=== PATIENT | male | born 1960 | race Caucasian/White ===

== ENCOUNTER 2021-12-23 03:08 | Emergency (ER) | payer BC ==
--- OUTSIDE RECORDS SUMMARY | 2021-12-23 03:10 | XMS REPORT | Continuity of Care Document ---
:1960 Author Organization [facility] t Address [address] [place] [address] [place] [id number] Care Team Providers Name Role Phone Ania Eid MD Primary Care Physician ANIA EID Attending Clinician Unavailable Prezas DO Attending Clinician LAB90 Attending Clinician Unavailable Ania Eid MD Attending Clinician MYGOGOONANGELIC Attending Clinician Unavailable Payers Payer Name Policy Type Policy Number Effective Date Expiration Date Vinicius palafox [facility] 2 [id number] 2020 00:00:00 Problems Condition Condition Condition Status Onset Resolution Last Treating Co mments Source Name Details Category Date Date Treatment Clinician Date Cellulitis Cellulitis Disease Active Samy santamariay of right of right 12-22 Seybol d lower lower 00:00: extremity extremity 00 Prediabete Prediabete Disease Active Samy fang s s 11-30 Seybold 00:00: 00 Hypertensi Hypertensi Disease Active Samy fang on on 11-17 Seybold 00:00: 00 IFG IFG Disease Active Gogo (impaired (impaired 11-17 Seyb old fasting fasting 00:00: glucose) glucose) 00 Hyperlipid Hyperlipid Disease Active Samy fang emia LDL emia LDL 11-17 Seybol d goal <160 goal <160 00:00: 00 Allergies, Adverse Reactions, Alerts This patient has no known allergies or adverse reactions. Social History Social Habit Start Date Stop Date Quantity Comments Source Exposure to Not sure Gogo brewer SARS-CoV-2 (event) History of Cigarette Smoker Gogo hardin tobacco use Alcohol intake 2021-12-22 2021-12-22 Ex-drinker Gogo Ashton bold 00:00:00 00:00:00 (finding) Sex [birth year] At [birth year] Gogo stoddard 00:00:00 00:00:00 Smoking Status Start Date Stop Date Source Occasional tobacco smoker 2020-11-17 00:00:00 Arthur Juan Medications Ordered Filled Start Stop Current Ordering Indication Dosage Frequency Signature Comments Components Source Medication Medication Date Date Medication? Clinician (SIG) Name Name Amoxicillin Yes [id number] 1{tbl} Take 1 Gogo -Pot 12-22 [id number] tablet by Seybold Clavulanate 00:00: mouth in 875-125 MG 00 the oral Tablet morning and 1 tablet in the evening. Doxycycline 2021- Yes [id number] 100mg Take 1 Gogo Hyclate 100 12-22 [id number] capsule Se ybold MG oral 00:00: 04:59 (100 mg Capsule 00 :00 total) by mouth in the morning and 1 capsule (100 mg total) in the evening. Do all this for 7 days. Lisinopril Yes [id number] 20mg Take 1 K elsey 20 MG oral 5-09 tablet (20 Sey bold Tablet 00:00: mg total) 00 by mouth daily Lisinopril Yes [id number] 20mg Take 1 K elsey 20 MG oral 5-09 tablet (20 Sey bold Tablet 00:00: mg total) 00 by mouth daily Rosuvastati 2020-07 Yes [id number] 10mg Take 1 Gogo n Calcium 0-25 tablet (10 Seyb old 10 MG oral 00:00: mg total) Tablet 00 by mouth daily Rosuvastati 2020-07 Yes [id number] 10mg Take 1 Gogo n Calcium 0-25 tablet (10 Seyb old 10 MG oral 00:00: mg total) Tablet 00 by mouth daily Lisinopril 2020-07 Yes [id number] 20mg Take 1 K elsey 20 MG oral 0-18 tablet (20 Sey bold Tablet 00:00: mg total) 00 by mouth daily Lisinopril 2020-07- No [id number] 20mg Take 1 Gogo 20 MG oral 0-18 05-09 tablet (20 Se ybold Tablet 00:00: 00:00 mg total) 00 :00 by mouth daily Lisinopril 2020- No [id number] 20mg Take 1 Gogo 20 MG oral 4-26 10-18 tablet (20 Se ybold Tablet 00:00: 00:00 mg total) 00 :00 by mouth daily Immunizations Ordered Immunization Filled Immunization Date Status Commen ts Source Name Name Covid-19 Vaccine 2021-09-05 Completed Gogo hardin ([employer]), Mrna-lnp, 00:00:00 Sahun Protein, Pf, 30mcg/0.3ml,IM Covid-19 Vaccine 2021-09-05 Completed Gogo hardin ([employer]), Mrna-lnp, 00:00:00 Shaun Protein, Pf, 30mcg/0.3ml,IM Influenza, 2021-06-06 Completed Gogo Juan Injectable, Mdck, 00:00:00 Preservative Free, Quadrivalt Influenza, 2021-06-06 Completed Gogo Juan Injectable, Mdck, 00:00:00 Preservative Free, Quadrivalt Vital Signs Vital Name Observation Time Observation Value Comments Source Systolic blood pressure 2021-12-22 21:32:00 156 mm[Hg] Gogo Juan Diastolic blood 2021-12-22 21:32:00 78 mm[Hg] Dave Juan pressure Heart rate 2021-12-22 21:32:00 93 /min Gogo hardin Body temperature 2021-12-22 21:32:00 36.94 Denise Jessica Juan Respiratory rate 2021-12-22 21:32:00 14 /min Jessica Juan Body height 2021-12-22 21:32:00 162.6 cm Gogo hardin Body weight 2021-12-22 21:32:00 95.709 kg Gogo hardin BMI 2021-12-22 21:32:00 36.22 kg/m2 Gogo S eybold Oxygen saturation in 2021-12-22 21:32:00 98 /min Gogo Juan Arterial blood by Pulse oximetry Systolic blood pressure 2021-11-30 13:20:00 120 mm[Hg] Gogo Seybold Diastolic blood 2021-11-30 13:20:00 78 mm[Hg] Kelse y Seybold pressure Heart rate 2021-11-30 13:20:00 96 /min Gogo Colvin eybold Body temperature 2021-11-30 13:20:00 36.67 Denise Jessica ey Seybold Respiratory rate 2021-11-30 13:20:00 14 /min Jessica ey Seybold Body height 2021-11-30 13:20:00 162.6 cm Gogo Colvin eybold Body weight 2021-11-30 13:20:00 95.709 kg Gogo Colvin eybold BMI 2021-11-30 13:20:00 36.22 kg/m2 Gogo campuzanobold Oxygen saturation in 2021-11-30 13:20:00 99 /min Gogo Juan Arterial blood by Pulse oximetry Systolic blood pressure 2021-05-11 14:08:00 127 mm[Hg] Gogo Seybold Diastolic blood 2021-05-11 14:08:00 74 mm[Hg] Kelse y Seybold pressure Heart rate 2021-05-11 14:08:00 86 /min Gogo Colvin eybold Body temperature 2021-05-11 14:08:00 36.44 Denise Jessica ey Seybold Respiratory rate 2021-05-11 14:08:00 14 /min Jessica campuzano Seybold Body height 2021-05-11 14:08:00 162.6 cm Gogo campuzanobold Body weight 2021-05-11 14:08:00 92.352 kg Gogo Colvin eybold BMI 2021-05-11 14:08:00 34.95 kg/m2 Gogo campuzanobold Procedures This patient has no known procedures. Encounters Start End Encounter Admission Attending Care Care Encounter Source Date/Time Date/Time Type Type Clinicians Facility Department ID 2022-06-14 2022-06-14 Outpatient GOGO EID [id number] Gogo 08:00:00 08:00:00 ASHLEY brewer 2021-12-22 2021-12-22 Office Madhu Rob [id number] Gogo 16:30:00 16:45:00 Visit Elton López [id number] Se ybold [id number] 2021-11-30 2021-11-30 Outpatient LAB90 GOGO FIGUEREDO [id number] Gogo 08:45:00 08:45:00 Seybol d 2021-11-30 2021-11-30 Office Madhu Eid [id number] Gogo 08:00:00 08:15:00 Visit Ashley López [id number] Se ybradha Somogyi [id number] 2021-11-09 2021-11-09 Outpatient GOGO EID [id number] Gogo 08:00:00 08:00:00 ASHLEY Seybol d 2021-08-13 2021-08-13 Outpatient ISAMAR FIGUEREDO [id number] Gogo 00:00:00 00:00:00 MD HÉCTOR Seybol d 2021-05-13 2021-05-13 Outpatient GOGO EID [id number] Gogo 00:00:00 00:00:00 ASHLEY Seybol d 2021-05-11 2021-05-11 Outpatient LAB90 GOGO FIGUEREDO [id number] Gogo 09:50:00 09:50:00 Seybol d 2021-05-11 2021-05-11 Office [place], Madhu [id number] Gogo 08:56:21 09:26:21 Visit Ashley López [id number] Se ybradha Somogyi [id number] Results This patient has no known results.
[2021-12-23] MEDS ORDERED: HYDROCODONE/APAP 5/325 MG TAB ONE (06:49)
--- NOTE | 2021-12-23 08:09 | RAD REPORT ---
EXAM DESCRIPTION: RAD - Foot Right 3 View - 12/23/2021 7:42 am CLINICAL HISTORY: Pain COMPARISON: FOOT W OBLIQUES dated 01/27/2009 FINDINGS: Small plantar calcaneal spur. Soft tissue swelling is seen along the dorsum of the forefoo t. No acute fracture, dislocation or aggressive marrow lesion.
--- NOTE | 2021-12-23 09:23 | EDPHYS ---
Physician Documentation [facility] Name: Rocael Mullins Age: 61 yrs Sex: Male : 1960 Arrival Date: 12/23/2021 Time: 03:14 Bed 15 Private MD: ED Physician Marc Deshpande HPI: 12/23 06:15 This 61 yrs old Male presents to ER via Wheelchair with complaints of Foot Pain, Foot mh7 Injury, Wound Infection. 06:15 The patient presents with pain, that is acute, swelling. The complaints affect the mh7 right foot. Context: The problem was sustained at an unknown location, resulted from an unknown cause, Mechanism of Injury: Unknown the patient can fully bear weight, the patient is able to ambulate, with mild difficulty. Onset: The symptoms/episode began/occurred 2 day(s) ago. Modifying factors: The symptoms are alleviated by nothing, the symptoms are aggravated by weight bearing. Associated signs and symptoms: Pertinent negatives: calf tenderness, fever, nausea, numbness, rash, tingling, vomiting, warmth, weakness. Severity of symptoms: At their worst the symptoms were moderate, 1 day(s) ago, in the emergency department the symptoms are unchanged. Historical: - Allergies: 03:58 No Known Allergies; vc1 - Home Meds: 03:58 lisinopril 10 mg Oral tab 1 tab once daily [Active]; vc1 - PMHx: 03:58 Hypertensive disorder; vc1 - PSHx: 03:58 Hernia repair; vc1 - Immunization history:: Adult Immunizations up to date. - Social history:: Smoking status: Patient reports the use of cigarette tobacco products, 1 pack per week. ROS: 06:15 Constitutional: Negative for fever, chills, and weight loss, Eyes: Negative for injury, mh7 pain, redness, and discharge, ENT: Negative for injury, pain, and discharge, Neck: Negative for injury, pain, and swelling, Cardiovascular: Negative for chest pain, palpitations, and edema, Respiratory: Negative for shortness of breath, cough, wheezing, and pleuritic chest pain, Abdomen/GI: Negative for abdominal pain, nausea, vomiting, diarrhea, and constipation, Back: Negative for injury and pain, : Negative for injury, bleeding, discharge, and swelling, Neuro: Negative for headache, weakness, numbness, tingling, and seizure, Psych: Negative for depression, anxiety, suicide ideation, homicidal ideation, and hallucinations, Allergy/Immunology: Negative for hives, rash, and allergies, Endocrine: Negative for neck swelling, polydipsia, polyuria, polyphagia, and marked weight changes. Exam: 06:15 Head/Face: Normocephalic, atraumatic. Eyes: Pupils equal round and reactive to light, mh7 extra-ocular motions intact. Lids and lashes normal. Conjunctiva and sclera are non-icteric and not injected. Cornea within normal limits. Periorbital areas with no swelling, redness, or edema. Neck: Trachea midline, no thyromegaly or masses palpated, and no cervical lymphadenopathy. Supple, full range of motion without nuchal rigidity, or vertebral point tenderness. No Meningismus. Chest/axilla: Normal chest wall appearance and motion. Nontender with no deformity. No lesions are appreciated. Cardiovascular: Regular rate and rhythm with a normal S1 and S2. No gallops, murmurs, or rubs. Normal PMI, no JVD. No pulse deficits. Respiratory: Lungs have equal breath sounds bilaterally, clear to auscultation and percussion. No rales, rhonchi or wheezes noted. No increased work of breathing, no retractions or nasal flaring. Abdomen/GI: Soft, non-tender, with normal bowel sounds. No distension or tympany. No guarding or rebound. No evidence of tenderness throughout. Back: No spinal tenderness. No costovertebral tenderness. Full range of motion. 06:15 Constitutional: The patient appears in no acute distress, alert, awake, uncomfortable. 06:15 Musculoskeletal/extremity: Extremities: noted in the right foot: erythema, tenderness, ROM: intact in all extremities, Circulation is intact in all extremities. Sensation intact. Compartment Syndrome exam of affected extremity: is normal. no numbness, no tingling, no sensation deficit, no palor, no weak pulses, Joints: All joints appear normal with full range of motion. Weight bearing: able to fully bear weight, Tendon exam: specific tendon testing normal through active and passive range of motion Calves: are non-tender, have equal circumference. 06:15 Skin: cellulitis, that is mild, on the right foot. Vital Signs: 03:50 BP 144 / 85; Pulse 81; Resp 16; Temp 98.8; Pulse Ox 98% ; Weight 88.45 kg; Height 5 ft. vc1 9 in. (175.26 cm); Pain 9/10; 05:36 BP 141 / 89; Pulse 75; Resp 16; Temp 98.8; Pulse Ox 99% on R/A; Pain 7/10; willa 09:19 BP 134 / 79; Pulse 66; Resp 14 S; Pulse Ox 95% on R/A; jg9 03:50 Body Mass Index 28.80 (88.45 kg, 175.26 cm) vc1 MDM: 09:22 Patient medically screened. kdr 10:40 Data reviewed: vital signs, nurses notes, lab test result(s), radiologic studies. kdr Counseling: I had a detailed discussion with the patient and/or guardian regarding: the historical points, exam findings, and any diagnostic results supporting the discharge/admit diagnosis, lab results, the need for outpatient follow up. 12/23 06:47 Order name: Foot Right 3 View XRAY; Complete Time: 08:54 mh7 12/23 09:18 Order name: Crutches; Complete Time: 09:26 kdr Administered Medications: 06:48 Drug: HYDROcodone-acetaminophen 5 mg-325 mg 1 tabs Route: PO; willa 07:45 Follow up: Response: No adverse reaction; Pain is decreased; RASS: Alert and Calm (0) jg9 Disposition Summary: 12/23/21 09:22 Discharge Ordered Location: Home kdr Problem: new kdr Symptoms: are unchanged kdr Condition: Stable kdr Diagnosis - Cellulitis of right lower limb - foot - 1st TCP kdr Followup: kdr - With: Private Physician - When: 2 - 3 days - Reason: If symptoms return, Further diagnostic work-up, Recheck today's complaints, Continuance of care, Re-evaluation by your physician Discharge Instructions: - Discharge Summary Sheet kdr - Cellulitis, Adult, Gxof-rh-Jagu kdr Forms: - Medication Reconciliation Form kdr - Thank You Letter kdr - Antibiotic Education kdr - Prescription Opioid Use kdr - Work release form jg9 Prescriptions: - Tylenol-Codeine #3 300 mg-30 mg Oral - take 1 tablet by ORAL route every 4-6 hours As needed Try to use only at kdr bedtime or at night; 12 tablet; Refills: 0, Product Selection Permitted Signatures: Dispatcher [employer] Marc Altamirano MD MD kdr Richi Mohr MD MD mh7 Bekah Navas RN RN willa Wendy Alcazar RN RN vc1 Tri Huber RN jg9
--- NOTE | 2021-12-23 09:23 | ER ---
Nurse's Notes [facility] Name: Rocael Mullins Age: 61 yrs Sex: Male : 1960 Arrival Date: 12/23/2021 Time: 03:14 Bed 15 Private MD: Diagnosis: Cellulitis of right lower limb-foot - 1st TCP Presentation: 12/23 03:50 Chief complaint: Patient states: "I went to urgent care yesterday because my foot was vc1 swollen. They said I have an infection, sent me home with antibiotics and told me to prop it up. The pain is too bad I was just tossing and turning and can't handle it.". Coronavirus screen: Vaccine status: Patient reports receiving the 2nd dose of the covid vaccine. [employer] At this time, the client does not indicate any symptoms associated with coronavirus-19. Ebola Screen: No symptoms or risks identified at this time. Initial Sepsis Screen: Does the patient meet any 2 criteria? No. Patient's initial sepsis screen is negative. Does the patient have a suspected source of infection? No. Patient's initial sepsis screen is negative. Risk Assessment: Do you want to hurt yourself or someone else? Patient reports no desire to harm self or others. Onset of symptoms is unknown. 03:50 Method Of Arrival: Wheelchair vc1 03:50 Acuity: MILI 3 vc1 Triage Assessment: 05:37 General: Appears in no apparent distress. uncomfortable, Behavior is calm, cooperative. willa Pain: Complains of pain in right foot Quality of pain is described as throbbing. 05:38 Injury Description: unknown. willa 05:38 Musculoskeletal: Swelling present in right foot. willa Historical: - Allergies: 03:58 No Known Allergies; vc1 - Home Meds: 03:58 lisinopril 10 mg Oral tab 1 tab once daily [Active]; vc1 - PMHx: 03:58 Hypertensive disorder; vc1 - PSHx: 03:58 Hernia repair; vc1 - Immunization history:: Adult Immunizations up to date. - Social history:: Smoking status: Patient reports the use of cigarette tobacco products, 1 pack per week. Screenin:37 Abuse screen: Denies threats or abuse. Denies injuries from another. Nutritional willa screening: No deficits noted. Tuberculosis screening: No symptoms or risk factors identified. Fall Risk None identified. Assessment: 05:33 Reassessment: No changes from previously documented assessment. The pt was brought to willa room #15 via w/c. His right foot is red and swollen. He reports having walked, barefoot, [place] the beach on [place] and by Tuesday, his foot was "throbbing". There is no lesion, lac, or otherwise, that is visible. The pt is pleasant and cooperative. 06:34 Reassessment: The pt ambulated to the restroom, with a hobbled gait. He remains willa pleasant, but uncomfortable. 06:40 Reassessment: The pt was seen at [facility] yesterday. willa Vital Signs: 03:50 BP 144 / 85; Pulse 81; Resp 16; Temp 98.8; Pulse Ox 98% ; Weight 88.45 kg; Height 5 ft. vc1 9 in. (175.26 cm); Pain 9/10; 05:36 BP 141 / 89; Pulse 75; Resp 16; Temp 98.8; Pulse Ox 99% on R/A; Pain 7/10; willa 09:19 BP 134 / 79; Pulse 66; Resp 14 S; Pulse Ox 95% on R/A; jg9 03:50 Body Mass Index 28.80 (88.45 kg, 175.26 cm) vc1 ED Course: 03:14 Patient arrived in ED. bp1 03:58 Triage completed. vc1 03:59 Arm band placed on right wrist. vc1 05:33 Bekah Navas, RN is Primary Nurse. willa 05:37 No provider procedures requiring assistance completed. willa 05:39 Bed in low position. Call light in reach. Lights dimmed. Warm blanket given. willa 06:10 Richi Mohr MD is Attending Physician. mh7 07:44 Foot Right 3 View XRAY In Process Unspecified. EDMS 07:44 Attending Physician role handed off by Richi Mohr MD kdr 07:44 Marc Deshpande MD is Attending Physician. kdr 09:40 Patient did not have IV access during this emergency room visit. jg9 Administered Medications: 06:48 Drug: HYDROcodone-acetaminophen 5 mg-325 mg 1 tabs Route: PO; willa 07:45 Follow up: Response: No adverse reaction; Pain is decreased; RASS: Alert and Calm (0) jg9 Medication: 09:27 VIS not applicable for this client. jg9 Outcome: 05:38 Condition: stable willa 09:22 Discharge ordered by . kdr 09:40 Discharged to home ambulatory, with crutches. jg9 09:40 Discharge instructions given to patient, Instructed on discharge instructions, follow up and referral plans. Demonstrated understanding of instructions, follow-up care, Prescriptions given X 1. 09:41 Patient left the ED. jg9 Signatures: Dispatcher [employer] EDMS Marc Deshpande MD MD kdr Paniauga, Brittany bp1 Holmes, Maurice, MD MD mh7 Tri Huber RN RN jg9 Bekah Navas RN RN bo Calcote, Vanessa RN RN vc1
[2021-12-23 09:45] VITALS: TEMP 98.8
[2021-12-23 09:49] VITALS: BP 134/79; O2SAT 95
== END 2021-12-23 09:41 | disposition home or self-care (01) ==
LOC: ER 03:08
DX: L03.115 Cellulitis of right lower limb (principal); I10 Essential (primary) hypertension; F17.210 Nicotine dependence, cigarettes, uncomplicated
CPT/HCPCS: 99283

== ENCOUNTER 2021-12-25 15:53 | Inpatient (IN) | payer BC ==
--- OUTSIDE RECORDS SUMMARY | 2021-12-25 17:43 | XMS REPORT | Continuity of Care Document ---
:1960 Author Organization [facility] t Address [address] [place] [address] [place] [id number] Care Team Providers Name Role Phone Ania Eid MD Primary Care Physician ANIA EID Attending Clinician Unavailable PREZAS Attending Clinician Unavailable Prezas DO Attending Clinician LAB90 Attending Clinician Unavailable Ania Eid MD Attending Clinician DUTCH Attending Clinician Unavailable Payers Payer Name Policy Type Policy Number Effective Date Expiration Date S vivienne [facility] 2 [id number] 2020 00:00:00 Problems Condition Condition Condition Status Onset Resolution Last Treating Co mments Source Name Details Category Date Date Treatment Clinician Date Cellulitis Cellulitis Disease Active Samy fang and and 12-25 Seybold abscess of abscess of 00:00: toe of toe of 00 right foot right foot Cellulitis Cellulitis Disease Active K elsey of right of right 12-22 Seybol d lower lower 00:00: extremity extremity 00 Prediabete Prediabete Disease Active Samy fang s s 11-30 Seybold 00:00: 00 Hypertensi Hypertensi Disease Active Samy fang on on 11-17 Seybold 00:00: 00 IFG IFG Disease Active Gogo (impaired (impaired 11-17 old fasting fasting 00:00: glucose) glucose) 00 Hyperlipid Hyperlipid Disease Active Samy fang emia LDL emia LDL 4-26 Seybol d goal <160 goal <160 00:00: 00 Allergies, Adverse Reactions, Alerts This patient has no known allergies or adverse reactions. Social History Social Habit Start Date Stop Date Quantity Comments Source Exposure to Not sure Gogo Mccallumol osman SARS-CoV-2 (event) History of Cigarette Smoker Gogo hardin tobacco use Alcohol intake 2021-12-22 2021-12-22 Ex-drinker Gogo montague 00:00:00 00:00:00 (finding) Sex [birth year] At [birth year] Gogo stoddard 00:00:00 00:00:00 Smoking Status Start Date Stop Date Source Occasional tobacco smoker 2020-11-17 00:00:00 Arthur Juan Medications Ordered Filled Start Stop Current Ordering Indication Dosage Frequency Signature Comments Components Source Medication Medication Date Date Medication? Clinician (SIG) Name Name Amoxicillin Yes [id number] 1{tbl} Take 1 Gogo -Pot 5-31 [id number] tablet by Seybold Clavulanate 00:00: mouth in 875-125 MG 00 the oral Tablet morning and 1 tablet in the evening. Amoxicillin Yes [id number] 1{tbl} Take 1 Gogo -Pot 5-31 [id number] tablet by Seybold Clavulanate 00:00: mouth in 875-125 MG 00 the oral Tablet morning and 1 tablet in the evening. Doxycycline 2021- Yes [id number] 100mg Take 1 Gogo Hyclate 100 12-22 [id number] capsule Se ybold MG oral 00:00: 04:59 (100 mg Capsule 00 :00 total) by mouth in the morning and 1 capsule (100 mg total) in the evening. Do all this for 7 days. Doxycycline 2021- Yes [id number] 100mg Take 1 Gogo Hyclate 100 12-22 [id number] capsule Se ybold MG oral 00:00: 04:59 (100 mg Capsule 00 :00 total) by mouth in the morning and 1 capsule (100 mg total) in the evening. Do all this for 7 days. Lisinopril Yes [id number] 20mg Take 1 K elsey 20 MG oral 5-09 tablet (20 Sey bold Tablet 00:00: mg total) 00 by mouth daily Lisinopril Yes [id number] 20mg Take 1 K elsey 20 MG oral 5-09 tablet (20 Sey bold Tablet 00:00: mg total) 00 by mouth daily Lisinopril Yes [id number] 20mg Take 1 K elsey 20 MG oral 5-09 tablet (20 Sey bold Tablet 00:00: mg total) 00 by mouth daily Rosuvastati 2020-07 Yes [id number] 10mg Take 1 Gogo n Calcium 0-25 tablet (10 Seyb old 10 MG oral 00:00: mg total) Tablet 00 by mouth daily Rosuvastati 2020-07 Yes [id number] 10mg Take 1 Gogo n Calcium 0-25 tablet (10 Seyb old 10 MG oral 00:00: mg total) Tablet 00 by mouth daily Rosuvastati 2020-07 Yes [id number] 10mg Take 1 Gogo n Calcium 0-25 tablet (10 Seyb old 10 MG oral 00:00: mg total) Tablet 00 by mouth daily Lisinopril 2020-07 Yes [id number] 20mg Take 1 K elsey 20 MG oral 0-18 tablet (20 Sey bold Tablet 00:00: mg total) 00 by mouth daily Lisinopril 2020-07 No [id number] 20mg Take 1 Gogo 20 MG oral 0-18 05-09 tablet (20 Se ybold Tablet 00:00: 00:00 mg total) 00 :00 by mouth daily Lisinopril 2020- No [id number] 20mg Take 1 Gogo 20 MG oral 4-26 10-18 tablet (20 Se ybold Tablet 00:00: 00:00 mg total) 00 :00 by mouth daily Immunizations Ordered Immunization Filled Immunization Date Status Commen ts Source Name Name Covid-19 Vaccine 2021-09-05 Completed Gogo hardin ([facility]), Mrna-lnp, 00:00:00 Shaun Protein, Pf, 30mcg/0.3ml,IM Covid-19 Vaccine 2021-09-05 Completed Gogo hardin ([facility]), Mrna-lnp, 00:00:00 Shaun Protein, Pf, 30mcg/0.3ml,IM Covid-19 Vaccine 2021-09-05 Completed Gogo Vinicius campuzanoclari ([facility]), Mrna-lnp, 00:00:00 Shaun Protein, Pf, 30mcg/0.3ml,IM Influenza, 2021-06-06 Completed Gogo buckrdaha Injectable, Mdck, 00:00:00 Preservative Free, Quadrivalt Influenza, 2021-06-06 Completed Gogo Sebuckold Injectable, Mdck, 00:00:00 Preservative Free, Quadrivalt Influenza, 2021-06-06 Completed Gogo Sarmientoybold Injectable, Mdck, 00:00:00 Preservative Free, Quadrivalt Vital Signs Vital Name Observation Time Observation Value Comments Source Systolic blood pressure 2021-12-25 18:57:00 139 mm[Hg] Gogo Juan Diastolic blood 2021-12-25 18:57:00 84 mm[Hg] Kwamese helio Sarmientoybradha pressure Heart rate 2021-12-25 18:57:00 104 /min Gogo hardin Body temperature 2021-12-25 18:57:00 37.11 Denise Jessica Juan Respiratory rate 2021-12-25 18:57:00 14 /min Jessica Juan Body height 2021-12-25 18:57:00 162.6 cm Gogo hardin Body weight 2021-12-25 18:57:00 95.709 kg Gogo hardin BMI 2021-12-25 18:57:00 36.22 kg/m2 Gogo hardin Oxygen saturation in 2021-12-25 18:57:00 97 /min Gogo Sebuckradha Arterial blood by Pulse oximetry Systolic blood pressure 2021-12-22 21:32:00 156 mm[Hg] Gogo Juan Diastolic blood 2021-12-22 21:32:00 78 mm[Hg] Kelse y Seybold pressure Heart rate 2021-12-22 21:32:00 93 /min Gogo hardin Body temperature 2021-12-22 21:32:00 36.94 Denise Jessica campuzano Seybradha Respiratory rate 2021-12-22 21:32:00 14 /min Jessica Juan Body height 2021-12-22 21:32:00 162.6 cm Gogo S eybold Body weight 2021-12-22 21:32:00 95.709 kg Gogo S eybold BMI 2021-12-22 21:32:00 36.22 kg/m2 Gogo S eybold Oxygen saturation in 2021-12-22 21:32:00 98 /min Gogo Seybold Arterial blood by Pulse oximetry Systolic blood pressure 2021-11-30 13:20:00 120 mm[Hg] Gogo Seybold Diastolic blood 2021-11-30 13:20:00 78 mm[Hg] Kelse y Seybold pressure Heart rate 2021-11-30 13:20:00 96 /min Gogo S eybold Body temperature 2021-11-30 13:20:00 36.67 Denise Jessica ey Seybold Respiratory rate 2021-11-30 13:20:00 14 /min Jessica ey Seybold Body height 2021-11-30 13:20:00 162.6 cm Gogo S eybold Body weight 2021-11-30 13:20:00 95.709 kg Gogo S eybold BMI 2021-11-30 13:20:00 36.22 kg/m2 Gogo S eybold Oxygen saturation in 2021-11-30 13:20:00 99 /min Gogo Seybold Arterial blood by Pulse oximetry Systolic blood pressure 2021-05-11 14:08:00 127 mm[Hg] Gogo Seybold Diastolic blood 2021-05-11 14:08:00 74 mm[Hg] Kelse y Seybold pressure Heart rate 2021-05-11 14:08:00 86 /min Gogo S eybold Body temperature 2021-05-11 14:08:00 36.44 Denies Jessica ey Seybold Respiratory rate 2021-05-11 14:08:00 14 /min Jessica ey Seybold Body height 2021-05-11 14:08:00 162.6 cm Gogo S eybold Body weight 2021-05-11 14:08:00 92.352 kg Gogo S eybold BMI 2021-05-11 14:08:00 34.95 kg/m2 Gogo S eybold Procedures This patient has no known procedures. Encounters Start End Encounter Admission Attending Care Care Encounter Source Date/Time Date/Time Type Type Clinicians Facility Department ID 2022-06-14 2022-06-14 Outpatient GOGO EID [id number] Gogo 08:00:00 08:00:00 ASHLEY Mccallumol osman 2021-12-25 2021-12-25 Office JAVIER Leung [id number] Gogo 14:00:00 14:00:00 Visit NAVEED López [id number] Se ybold [id number] 2021-12-23 2021-12-23 Outpatient GOGO ROB [id number] Gogo 00:00:00 00:00:00 NAVEED Mccallumol osman 2021-12-22 2021-12-22 Office Madhu Rob [id number] Gogo 16:30:00 16:45:00 Visit Naveed López [id number] Se ybold [id number] 2021-11-30 2021-11-30 Outpatient LAB90 GOGO FIGUEREDO [id number] Gogo 08:45:00 08:45:00 ybol osman 2021-11-30 2021-11-30 Office Madhu Eid [id number] Gogo 08:00:00 08:15:00 Visit Ashley López [id number] Se ybold Somogyi [id number] 2021-11-09 2021-11-09 Outpatient GOGO EID [id number] Gogo 08:00:00 08:00:00 ASHLEY Sarmientoybol osman 2021-08-13 2021-08-13 Outpatient ISAMAR FIGUEREDO [id number] Gogo 00:00:00 00:00:00 MD Torsten ANAYAybol osman 2021-05-13 2021-05-13 Outpatient GOGO EID [id number] Gogo 00:00:00 00:00:00 ASHLEY Sarmientoybol osman 2021-05-11 2021-05-11 Outpatient LAB90 GOGO GOGO [id number] Gogo 09:50:00 09:50:00 Seybol d 2021-05-11 2021-05-11 Office Madhu Eid [id number] Gogo 08:56:21 09:26:21 Visit Ashleyleo López [id number] Se janeradha Ania [id number] Results This patient has no known results.
[2021-12-25] MEDS ORDERED: ONDANSETRON 4 MG/2 ML VIAL IV PRN (18:14)
[2021-12-25] MEDS ORDERED: ACETAMINOPHEN 500 MG TAB PO PRN (18:14)
[2021-12-25] MEDS ORDERED: Levofloxacin500mg IV 500 MG/100 ML BAG IV SCH ×2 (19:00→20:00)
[2021-12-25] MEDS ORDERED: VANCOMYCIN 1 GM in NA CHLORIDE 0.9% 250 ML IVPB SCH (19:00)
[2021-12-25 19:07] LABS: Absolute Lymphocytes (CBC) 2.1 K/uL (0.7-4.9); Hematocrit 46.6 % (39.6-49.0); Lymphocytes % 18.7 % (15.3-44.8); MPV 7.2 fL (7.6-11.3); RBC Red Blood Cell Count 5.14 M/uL (4.33-5.43)
[2021-12-25 19:18] LABS: Potassium 3.8 mmol/L (3.5-5.1)
[2021-12-25 19:46] VITALS: BMI 29.7
[2021-12-25] MEDS: NA CHLORIDE 0.9% 1,000 ML IV SCH (20:19)
[2021-12-25] MEDS: MORPHINE 2 MG/ML SYR IV PRN ×2 (20:20→23:59)
[2021-12-25] MEDS ORDERED: VANCOMYCIN 1.5 GM in NA CHLORIDE 0.9% 500 ML IVPB SCH (21:00)
[2021-12-25] MEDS: INSULIN -REGULAR HUMAN 50 UNIT/0.5 ML ML SQ SCH (21:00)
[2021-12-25] MEDS ORDERED: NA CHLORIDE 0.9% 500 ML ONE (21:56)
[2021-12-25] MEDS ORDERED: VANCOMYCIN 500 MG/VIAL ONE (21:56)
[2021-12-25] MEDS ORDERED: VANCOMYCIN 1 GM/VIAL ONE (21:56)
--- NOTE | 2021-12-25 22:18 | P.HP ---
Certification for Inpatient Patient admitted to: Inpatient With expected LOS: <2 Midnights Patient will require the following post-hospital care: None Practitioner: I am a practitioner with admitting privileges, knowledge of patient current condition, hospital course, and medical plan of care. Services: Services provided to patient in accordance with Admission requirements found in Title 42 Section 412.3 of the Code of Federal Regulations Patient History Date of Service: 12/26/21 Primary Care Provider: Liane Reason for admission: Cellulitus R Foot History of Present Illness: Patient is a 61-year-old male with past medical history of hypertension who was a direct admission from Dr. Rob for right foot cellulitis. Labs significant for WBC 11.4. General surgery has been consulted. Patient is complaining of pain in his foot but otherwise has no complaints. Will start on IV antibiotics and admit patient for further evaluation and treatment. Allergies No Known Allergies Allergy (Verified 08/27/13 11:52) Home Medications: Promethazine Tab [Phenergan -Tab] 25 mg PO Q6HP PRN #10 tab 08/28/13 Tramadol/APAP [Ultracet 37.5 mg/APAP 325 mg per tab*] 1 - 2 tab PO Q4HP PRN #50 tab 08/28/13 levoFLOXacin [Levaquin*] 750 mg PO DAILY #6 tab 08/28/13 - Past Medical/Surgical History Has patient received pneumonia vaccine in the past: No Diabetic: No -: Hypertension -: hernia repair 2007 - Family History Family History: Reviewed- Non-Contributory - Social History Smoking Status: Current some day smoker Alcohol use: Yes CD- Drugs: No Caffeine use: No Place of Residence: Home Review of Systems 10-point ROS is otherwise unremarkable Musculoskeletal: Foot Pain Physical Examination - Vital Signs Temperature: 98.1 F Blood Pressure: 142/91 Pulse: 95 Respirations: 18 Pulse Ox (%): 97 - Physical Exam General: Alert, In no apparent distress HEENT: Atraumatic, PERRLA, EOMI, Sclerae nonicteric Neck: Supple, 2+ carotid pulse no bruit, No LAD, Without JVD or thyroid abnormality Respiratory: Clear to auscultation bilaterally, Normal air movement Cardiovascular: Regular rate/rhythm, Normal S1 S2 Gastrointestinal: Normal bowel sounds, No tenderness Musculoskeletal: No contractures Integumentary: Erythema, Warmth, Other (cellulitus R foot) Neurological: Normal speech, Normal strength at 5/5 x4 extr, Normal affect - Studies Laboratory Data (last 24 hrs) 12/25/21 18:55: Sodium 138, Potassium 3.8, BUN 19 H, Creatinine 1.03, Glucose 109 H 12/25/21 18:55: WBC 11.4 H, Hgb 15.7, Hct 46.6, Plt Count 389 Assessment and Plan - Problems (Diagnosis) (1) Cellulitis of right foot Current Visit: Yes Status: Acute (2) Hypertension Current Visit: Yes Status: Acute Qualifiers: Hypertension type: primary hypertension Qualified Code(s): I10 - Essential (primary) hypertension - Plan -NPO. IV Fluids -IV vancomycin and levaquin -Morphine PRN pain and zofran PRN nausea -Glucose control -General surgery consulting -Monitor BP. Hydralazine PRN. -Reconcile and continue home medications -Lovenox for VTE ppx -Full Code Discharge Plan: Home Plan to discharge in: 48 Hours - Advance Directives Does patient have a Living Will: No Does patient have a Durable POA for Healthcare: No - Code Status/Comfort Care Code Status Assessed: Yes (Full) Critical Care: No Time Spent Managing Pts Care (In Minutes): 50
[2021-12-26] MEDS: MORPHINE 2 MG/ML SYR IV PRN ×4 (05:22→21:31)
[2021-12-26 06:36] LABS: Absolute Lymphocytes (CBC) 1.9 K/uL (0.7-4.9); Hematocrit 40.9 % (39.6-49.0); Lymphocytes % 22.7 % (15.3-44.8); MPV 6.9 fL (7.6-11.3)
[2021-12-26 06:51] LABS: Protime INR 1.1
[2021-12-26 06:52] LABS: Potassium 3.9 mmol/L (3.5-5.1)
[2021-12-26] MEDS: INSULIN -REGULAR HUMAN 50 UNIT/0.5 ML ML SQ SCH ×2 (07:30→11:30)
[2021-12-26] MEDS: NA CHLORIDE 0.9% 1,000 ML IV SCH (09:45)
[2021-12-26] MEDS: VANCOMYCIN 1.25 GM in NA CHLORIDE 0.9% 250 ML IVPB SCH ×2 (09:58→21:22)
--- NOTE | 2021-12-26 11:21 | RAD REPORT ---
EXAM DESCRIPTION: CT - Foot Right W Con - 12/26/2021 11:05 am CLINICAL HISTORY: Right foot pain and swelling COMPARISON: December 23, 2021 x-ray TECHNIQUE: Computed axial tomography of the foot were obtained with coronal and sagittal reconstruct ion All CT scans are performed using dose optimization technique as appropriate and may include automated exposure control or mA/KV adjustment according to patient size. FINDINGS: Diffuse edema is present within the subcutaneous tissues likely a cellulitis. 6 millimeter fluid collection is present within the plantar subcutaneous tissue adjacent to near the fifth metatarsal head. No bony destructive lesion visualized. No fracture or dislocation Sclerosis within the calcaneus likely benign IMPRESSION: Cellulitis 6 millimeter fluid collection within the plantar subcutaneous tissue of the forefoot near the fifth m etatarsal head. This could represent a small abscess. Ultrasound may be helpful for further evaluatio n
[2021-12-26] MEDS ORDERED: propofoL 200 MG/20 ML VIAL IV ONE (14:26)
[2021-12-26] MEDS ORDERED: FENTANYL CITR 100 MCG/2 ML ONE (14:27)
[2021-12-26] MEDS ORDERED: LIDOCAINE 2% MPF 5 ML VIAL ONE (14:27)
[2021-12-26] MEDS: BUPIVACAINE 0.25% PF 10 ML VIAL ONE ×2 (14:43→14:54)
[2021-12-26] MEDS ORDERED: Levofloxacin 750mg IV 750 MG/150 ML BAG IV SCH (15:00)
[2021-12-26] MEDS ORDERED: KETOROLAC 30 MG/ML INJ ONE ×2 (15:01→15:02)
[2021-12-26] MEDS ORDERED: dexAMETHasone 10 MG/ML VIAL ONE (15:02)
--- NOTE | 2021-12-26 15:11 | CON ---
Date of Consultation: 12/26/2021 History Of Present Illness: The patient is a 61-year-old male with past medical history of hypertens ion, who is a direct admit from Dr. Rob' office with right foot cellulitis and significant tendern ess, pain and swelling of the right foot along the great toe metatarsophalangeal joint area, had been going on for several days prior. He had been treated with antibiotics without any significant impro vement, as such a concern for infection/abscess was increased and the patient was therefore admitted with the above stated issue. Pain continues to be present during his admission in the hospital, some what improved with pain medication, but not significantly changed with respect to redness, tenderness and symptoms otherwise. Past Medical History: As described, hypertension. Past Surgical History: He has had hernia repair in the past. Allergies: NO KNOWN DRUG ALLERGIES. Home Medications: Include Phenergan, Ultracet, Levaquin. He was given doxycycline from Dr. Liane lilly well. Family History: Reviewed and noncontributory. Social History: He smokes cigarettes about a pack a week. He states drinks alcohol recreationally. Denies any recreational drug use. Review of Systems: Ten-point review of systems other than HPI, denies. Physical Examination: Vital signs: At the time of my examination; temperature 98.1, blood pressure 142/91, pulse 95, respi ratory rate 18, temperature 97.0. General: He is awake, alert, oriented. Psychiatric: Appropriate, conversive. HEENT: Normocephalic. Sclerae anicteric. Mucous membranes moist. Oropharynx clear. Neck: Supple without JVD. Chest: Normal expansion and excursion. Cardiovascular: Regular rate and rhythm. Extremities: Focused examination of lower extremity shows right lower extremity swelling, redness, c ellulitis and fluctuance along the metatarsophalangeal joint. It is very tender to touch and unable to do a complete exam secondary to pain. Laboratory Data: He had a laboratory exam, which revealed a white blood cell count of 11.4, hemoglob in is 15.7, hematocrit of 46.6, platelet count was 389. His coags were PT is 12.1, INR 1.1, PTT 32.7 . Chemistry showed a sodium of 138, potassium 3.9, chloride 98, carbon dioxide 26, BUN 18, creatinin e 0.9, glucose was 137. His COVID was negative. He had imaging performed today, which was a CT of t he foot, specifically of the right foot officially, read as a 6 mm fluid collection present within th e plantar subcutaneous tissue adjacent near the fifth metatarsal head. No bony destructive changes. No fracture or dislocation, sclerosis within the calcaneus likely benign. Assessment And Plan: This is a 61-year-old male, who has a fluid collection consistent with abscess in the metatarsophalangeal joint of the right foot. 1.IV fluid hydration. 2.Antibiotic coverage. 3.I explained risks, benefits, and alternatives of incision and drainage of this fluid including, bu t not limited to bleeding, infection, damage to surrounding tissues, need for further operation and p rocedures. The patient agrees to proceed as indicated. Thank you for this interesting consult. IDRIS/ADDIE Voice ID: [id number] Report ID: [id number]
--- NOTE | 2021-12-26 15:13 | P.OP ---
Preoperative diagnosis: RIGHT great toe infection Postoperative diagnosis: RIGHT great toe infection Primary procedure: Incision and drainage of RIGHT great toe collection Anesthesia: GETA + Local Estimated blood loss: <5cc Specimen: none Findings: small sterile appearing collection Complications: None Transferred to: Recovery Room Condition: Good
[2021-12-26] MEDS ORDERED: ONDANSETRON 4 MG/2 ML VIAL ONE ×2 (15:25→15:46)
[2021-12-26] MEDS: HYDROMORPHONE HCL 1 MG/ML INJ ONE ×2 (15:42→15:47)
[2021-12-26 15:54] VITALS: O2SAT 96
[2021-12-26] MEDS ORDERED: HYDROCORTISONE SUC 100 MG INJ IV ONE (16:02)
[2021-12-26] MEDS ORDERED: COLCHICINE 0.6 MG TAB PO ONE (16:02)
[2021-12-26] MEDS: COLCHICINE 0.6 MG TAB PO SCH (21:21)
--- NOTE | 2021-12-27 00:30 | OP ---
Date of Procedure: 12/26/2021 Surgeon: Jono Diego MD, Preoperative Diagnosis: Right great toe infection. Postoperative Diagnosis: Right great toe infection. Procedure Performed: Incision and drainage of right great toe collection. Anesthesia: General endotracheal, local. Estimated Blood Loss: Less than 5 cc. Specimen: None. Findings: Small sterile appearing collection at the metatarsophalangeal joint. Complications: None. Disposition: The patient transferred to recovery room in good condition. Procedure In Detail: After informed consent was obtained, the patient was brought to the operating r oom, prepped and draped in the usual sterile fashion. After adequate anesthesia was achieved, the ar ea of the right great toe was anesthetized with 0.25% Marcaine, sharply incised along linear fashion at the metatarsophalangeal joint, parallel to the direction of the toe. I dissected down to the subc utaneous tissues utilizing electrocautery to encounter a small fluid collection at the metatarsophala ngeal joint area. This appeared sterile, but it was such a small collection I could not obtain an ap propriate specimen for consideration of gout contributing to this condition versus infectious process . It did not appear to have a purulent consistency to it. It appeared to be fluid. As such it was drained in its entirety. The area was copiously irrigated multiple times until completely dry and th e wound was then packed with quarter-inch iodoform packing. Sterile dressing placed over the top. T he patient tolerated the procedure well without evidence of complication, and transferred to PACU in good condition. All counts were correct at the end of the case. IDRIS/ADDIE Voice ID: [id number] Report ID: [id number]
[2021-12-27] MEDS: NA CHLORIDE 0.9% 1,000 ML IV SCH (01:02)
[2021-12-27] MEDS: HYDROCORTISONE SUC 100 MG INJ IV SCH ×2 (05:48→09:55)
[2021-12-27] MEDS: COLCHICINE 0.6 MG TAB PO SCH (09:55)
[2021-12-27] MEDS: VANCOMYCIN 1.25 GM in NA CHLORIDE 0.9% 250 ML IVPB SCH (09:56)
[2021-12-27 12:26] VITALS: BP 154/80; TEMP 98.5
== END 2021-12-27 13:30 | disposition home or self-care (01) | DRG 603 ==
LOC: 2ND 17:40
PROVIDERS: ADMIT Hospitalist; ATTEND Hospitalist
PROC: 0J9Q0ZX Drainage of Right Foot Subcutaneous Tissue and Fascia, Open Approach, Diagnostic (ICD-10-PCS; principal; 2021-12-26 14:00)
DX: L03.031 Cellulitis of right toe (principal); L02.611 Cutaneous abscess of right foot; I10 Essential (primary) hypertension; F17.210 Nicotine dependence, cigarettes, uncomplicated; Z20.822 Contact with and (suspected) exposure to COVID-19
CPT/HCPCS: 36415; 73701; 80048; 80202; 85025; 85610; 85730; J1100; J1170; J1720; J2270; J2405; J2704; J3010; J3370; J7030; J7040; J7050; U0003